=== PATIENT | male | born 1945 | race Caucasian/White ===

== ENCOUNTER 2017-11-15 04:52 | Inpatient (IN) | payer OTHER ==
[~2017-11-15] VITALS: Ht 188 cm; Wt 112.5 kg
[2017-11-15 04:59] VITALS: BP_SYST 144
--- NOTE | 2017-11-15 05:00 | NUR ---
Placed in room 06. Side rails up. Report given to BASSAM Whalen.
--- NOTE | 2017-11-15 05:05 | NUR ---
PT AAOX4 CAME IN WITH A COMPLAINT OF EPIGASTRIC PAIN THAT STARTED LAST NIGHT WITH A SCALE OF 7/10 AND VERBALIZED BY PT HE FEELS MORE COMFORTABLE SITTING DOWN THAN LYING DOWN ON BED. VSS WITH NO SIGNS OF RESPIRATORY DISTRESS. NO NAUSEA AND FEVER NOTED. HAS HISTORY OF HIGH CHOLESTEROL AND HYPERTENSION. SAFETY PRECAUTION OBSERVED AND WILL CONTINUE TO MONITOR PT.
[2017-11-15] MEDS ORDERED: GLUXR500 (05:29)
[2017-11-15] MEDS ORDERED: METO1TAB40 (05:29)
[2017-11-15] MEDS ORDERED: ALLO100T (05:29)
[2017-11-15] MEDS ORDERED: LIP10 (05:29)
[2017-11-15] MEDS ORDERED: VALS80TA2 (05:29)
[2017-11-15] MEDS ORDERED: AMLO5TAB4 (05:29)
--- NOTE | 2017-11-15 05:34 | NUR ---
ER at bedside examining patient.
[2017-11-15] MEDS ORDERED: KETOROLAC TROMETHAMINE 60 MG/2 ML VIAL IM ONE (05:45)
[2017-11-15 06:06] LABS: BASOPHILS % (AUTO) 0.7 % (0.0-2.0); EOSINOPHILS # (AUTO) 0.1 K/uL (0.0-0.4); EOSINOPHILS % (AUTO) 0.9 % (0.0-4.0); HEMATOCRIT 39.1 % (36-54); HEMOGLOBIN 13.4 g/dL (14.0-18.0); LYMPHOCYTES # (AUTO) 1.5 K/uL (1.0-5.5); LYMPHOCYTES % (AUTO) 22.2 % (20.5-51.5); MEAN CORPUSCULAR HEMOGLOBIN 33 pg (27-31); MEAN CORPUSCULAR HGB CONC 34 % (32-36); MEAN CORPUSCULAR VOLUME 97 fL (79.0-98.0); MONOCYTES # (AUTO) 0.5 K/uL (0.0-1.0); MONOCYTES % (AUTO) 6.9 % (1.7-9.3); NEUTROPHILS # (AUTO) 4.6 K/uL (1.8-7.7); NEUTROPHILS % (AUTO) 69.3 % (40.0-70.0); PLATELET COUNT (AUTO) 304 K/uL (130-430); RED BLOOD CELL COUNT(AUTO) 4.04 MIL/uL (4.2-6.2); RED CELL DISTRIBUTION WIDTH 13.5 % (9.0-15.0); WHITE BLOOD COUNT (AUTO) 6.7 K/uL (4.8-10.8)
[2017-11-15 06:22] LABS: CALCIUM 10.3 mg/dL (8.4-11.0); CHLORIDE 109 mmol/L (98-107); CREATININE 0.68 mg/dL (0.55-1.30); GLUCOSE 147 mg/dL (70-99); SODIUM SERUM 141 mmol/L (136-145); UREA NITROGEN, BLOOD 23 mg/dL (8-21)
[2017-11-15 06:23] LABS: ANION GAP < 3 (5-15); GFR AFRICAN AMERICAN 148 mL/min (>90)
[2017-11-15 06:26] LABS: ALANINE AMINOTRANSFERASE 43 U/L (12-78); AMYLASE 45 U/L (0-100); ASPARTATE AMINOTRANSFERASE 23 U/L (10-37); LACTATE DEHYDROGENASE 148 U/L (85-227); LIPASE 425 U/L (73-393); TOTAL BILIRUBIN 0.2 mg/dL (0.0-1.0)
[2017-11-15] MEDS ORDERED: D5NS 1,000 ML IV ONE (07:45)
[2017-11-15 08:06] LABS: BILIRUBIN,URINE NEGATIVE (NEGATIVE); BLOOD, URINE 1+ (NEGATIVE); CLARITY/URINE SL HAZY (CLEAR); COLOR,URINE YELLOW (YELLOW); GLUCOSE,URINE NEGATIVE (NEGATIVE); KETONES,URINE NEGATIVE (NEGATIVE); LEUKOCYTE ESTERASE ,URINE NEGATIVE (NEGATIVE); NITRITE, URINE NEGATIVE (NEGATIVE); PH,URINE 5.5 (5.0-8.0); PROTEIN URINE 2+ (NEGATIVE); UROBILINOGEN,URINE 0.2 (0.2-1.0)
--- NOTE | 2017-11-15 08:10 | NUR ---
# 22 gauge angiocath placed to L HAND. Use of asceptic technique. Opsite placed over site. Blood return noted. Flushed with 10 cc of normal saline. No evidence of infiltration noted. Patient tolerated well.
[2017-11-15 08:13] LABS: BACTERIA,URINE RARE /HPF (None Seen); RBC,URINE 0-3 /HPF (0-3); WBC,URINE 0-3 /HPF (0-3)
--- NOTE | 2017-11-15 08:21 | NUR ---
Patient will be admitted to care of Dr. Akins. Admitted to medsurg unit. Will go to room 135. Belongings list completed. Summary report printed. Report will be given at bedside.
--- NOTE | 2017-11-15 08:22 | NUR ---
Transfer to [facility]. IV present no sign or symptom of infiltration.
--- NOTE | 2017-11-15 08:30 | NUR ---
Admission Note Received patient from ER with diagnosis of acute cholecystitis. Initial Plan of Care discussed-patient verbalized understanding. Family at bedside. Oriented to room, call light, pain management and safety.
[2017-11-15 08:32] VITALS: BP_SYST 150
--- NOTE | 2017-11-15 08:39 | NUR ---
CONSULT SURGERY POSSIBLE SURGERY ACUTE CHOLECYSTITIS DR BANDA [phone] S/W MIYA CUMMINS @[id number]
--- NOTE | 2017-11-15 09:16 | NUR ---
Admission: Seen patient in the room. Denies pain at this time . Oriented to room routine. Started IV fluids of D5NS at 100 cc/hr on the left hand gauge 22. Call light within reach.
[2017-11-15 09:26] VITALS: BP_SYST 171
[2017-11-15 11:35] VITALS: BP_SYST 147
[2017-11-15] MEDS ORDERED: KETOROLAC TROMETHAMINE 30 MG VIAL IVP ONE (12:15)
--- NOTE | 2017-11-15 12:21 | NUR ---
Migraine: Medicated with Toradol IVP for Migraine.
--- NOTE | 2017-11-15 14:00 | NUR ---
MD rounds: Seen by Dr. Suazo for surgical consult.
[2017-11-15 15:52] VITALS: BP_SYST 147
--- NOTE | 2017-11-15 17:20 | NUR ---
Ultrasound result: Reported to Dr. Suazo, with new orders. Patient is aware.
[2017-11-15 17:40] VITALS: BP_SYST 147
== END 2017-11-15 18:23 | disposition home or self-care (01) | DRG 446 ==
LOC: SED 04:52 → SMU 07:34
PROVIDERS: ADMIT Specialist; ATTEND Specialist
DX: K81.0 Acute cholecystitis (principal); E11.9 Type 2 diabetes mellitus without complications; K57.90 Diverticulosis of intestine, part unspecified, without perforation or abscess without bleeding; E66.9 Obesity, unspecified; E78.5 Hyperlipidemia, unspecified; I10 Essential (primary) hypertension; N40.0 Benign prostatic hyperplasia without lower urinary tract symptoms; Z88.0 Allergy status to penicillin; Z79.899 Other long term (current) drug therapy; Z68.31 Body mass index [BMI] 31.0-31.9, adult
CPT/HCPCS: 36415; 76700-TC; 80053; 81000-TC; 82150-TC; 83615-TC; 83690-TC; 85025; 96372; 99285; J1885; J7042

== ENCOUNTER 2021-07-13 08:58 | Emergency (ER) | payer OTHER ==
[~2021-07-13] VITALS: Ht 188 cm; Wt 111.1 kg
[~2021-07-13 08:58] MED LIST: ALLO100T; AMLO5TAB4; GLUXR500; LIP10; METO1TAB40; VALS80TA2
--- NOTE | 2021-07-13 09:00 | NUR ---
Patient to ER bed 4 to gown for evaluation. Side rails up. Report given to Jaquan BANEGAS.
[2021-07-13 09:10] VITALS: BP_SYST 133
--- NOTE | 2021-07-13 09:30 | NUR ---
Dr Guerrero in to assess
--- NOTE | 2021-07-13 09:53 | NUR ---
CXR,EKG,LABS COMPLETED. TOLERATED WELL. DENIES CP/SOB
[2021-07-13 10:21] LABS: BASOPHILS % (AUTO) 0.5 % (0.0-2.0); EOSINOPHILS % (AUTO) 0.9 % (0.0-4.0); HEMATOCRIT 39.1 % (36-54); HEMOGLOBIN 13.3 g/dL (14.0-18.0); LYMPHOCYTES # (AUTO) 1.6 K/uL (1.0-5.5); LYMPHOCYTES % (AUTO) 31.4 % (20.5-51.5); MEAN CORPUSCULAR HEMOGLOBIN 33 pg (27-31); MEAN CORPUSCULAR HGB CONC 34 % (32-36); MEAN CORPUSCULAR VOLUME 97 fL (79.0-98.0); MONOCYTES # (AUTO) 0.4 K/uL (0.0-1.0); MONOCYTES % (AUTO) 8.5 % (1.7-9.3); NEUTROPHILS # (AUTO) 2.9 K/uL (1.8-7.7); NEUTROPHILS % (AUTO) 58.7 % (40.0-70.0); PLATELET COUNT (AUTO) 276 K/uL (130-430); RED BLOOD CELL COUNT(AUTO) 4.04 MIL/uL (4.2-6.2); RED CELL DISTRIBUTION WIDTH 14.7 % (9.0-15.0)
[2021-07-13 10:25] LABS: ANION GAP 8 (5-15); CALCIUM 9.2 mg/dL (8.4-11.0); CHLORIDE 105 mmol/L (98-107); CREATININE 1.05 mg/dL (0.55-1.30); GLUCOSE 119 mg/dL (70-99); POTASSIUM 3.4 mmol/L (3.5-5.1); SODIUM SERUM 140 mmol/L (136-145); UREA NITROGEN, BLOOD 22 mg/dL (8-21)
[2021-07-13 11:27] VITALS: BP_SYST 131
--- NOTE | 2021-07-13 11:30 | NUR ---
Patient given written and verbal discharge instructions and verbalizes understanding. ER MD discussed with patient the results and treatment provided. Patient in stable condition. ID arm band removed. Patient educated on pain management and to follow up with PMD. Pain Scale Opportunity for questions provided and answered. Medication side effect fact sheet provided.
== END 2021-07-13 11:30 | disposition home or self-care (01) ==
LOC: SED 08:58
DX: R42 Dizziness and giddiness (principal); R07.89 Other chest pain; I10 Essential (primary) hypertension; E11.9 Type 2 diabetes mellitus without complications; Z88.0 Allergy status to penicillin; Z79.84 Long term (current) use of oral hypoglycemic drugs; Z79.899 Other long term (current) drug therapy
CPT/HCPCS: 36415; 71045; 80048; 81002; 85025; 93005; 99285

== ENCOUNTER 2023-09-21 17:05 | Inpatient (IN) | payer OTHER ==
[~2023-09-21] VITALS: Ht 188 cm; Wt 110.7 kg
[2023-09-21] MEDS ORDERED: IPRATROPIUM/ALBUTEROL SULFATE 3 ML AMPUL.NEB (DUONEB) INH ONE (17:15)
[2023-09-21 17:18] VITALS: BP_SYST 140; PULSE 95; RESP 16; O2SAT 94
[2023-09-21 17:32] VITALS: O2SAT 95
[2023-09-21 18:13] LABS: BASOPHILS % (AUTO) 0.2 % (0.0-2.0); EOSINOPHILS # (AUTO) 0.1 K/uL (0.0-0.4); EOSINOPHILS % (AUTO) 0.8 % (0.0-4.0); HEMATOCRIT 29.5 % (36-54); LYMPHOCYTES # (AUTO) 0.5 K/uL (1.0-5.5); LYMPHOCYTES % (AUTO) 7.9 % (20.5-51.5); MEAN CORPUSCULAR HEMOGLOBIN 36 pg (27-31); MEAN CORPUSCULAR HGB CONC 34 % (32-36); MEAN CORPUSCULAR VOLUME 107 fL (79.0-98.0); MONOCYTES # (AUTO) 0.4 K/uL (0.0-1.0); MONOCYTES % (AUTO) 6.7 % (1.7-9.3); NEUTROPHILS # (AUTO) 5.6 K/uL (1.8-7.7); NEUTROPHILS % (AUTO) 84.4 % (40.0-70.0); PLATELET COUNT (AUTO) 457 K/uL (130-430); RED BLOOD CELL COUNT(AUTO) 2.76 MIL/uL (4.2-6.2); RED CELL DISTRIBUTION WIDTH 18.7 % (9.0-15.0); WHITE BLOOD COUNT (AUTO) 6.6 K/uL (4.8-10.8)
[2023-09-21 18:16] LABS: ALANINE AMINOTRANSFERASE 21 U/L (12-78); ALBUMIN 2.6 g/dL (3.4-4.8); ANION GAP 9 (5-15); ASPARTATE AMINOTRANSFERASE 17 U/L (10-37); CALCIUM 8.6 mg/dL (8.4-11.0); CARBON DIOXIDE 26 mmol/L (23-29); CHLORIDE 94 mmol/L (98-107); CREATININE 6.52 mg/dL (0.55-1.30); GLUCOSE 129 mg/dL (74-106); POTASSIUM 5.3 mmol/L (3.5-5.1); SODIUM SERUM 129 mmol/L (136-145); TOTAL BILIRUBIN 0.2 mg/dL (0.0-1.0); TOTAL PROTEIN, SERUM 6.6 g/dL (6.4-8.3); UREA NITROGEN, BLOOD 67 mg/dL (8-21)
[2023-09-21 18:59] LABS: ANISOCYTOSIS 1+
[2023-09-21] MEDS ORDERED: cefTRIAXone 1 GM in D5W 50 ML IV ONE (19:15)
[2023-09-21] MEDS ORDERED: fentaNYL CITRATE/PF 100 MCG/2 ML AMP IVP ONE (19:15)
[2023-09-21 19:22] LABS: BILIRUBIN,URINE NEGATIVE (NEGATIVE); BLOOD, URINE 3+ (NEGATIVE); CLARITY/URINE CLEAR (CLEAR); COLOR,URINE YELLOW (YELLOW); GLUCOSE,URINE NEGATIVE (NEGATIVE); KETONES,URINE NEGATIVE (NEGATIVE); LEUKOCYTE ESTERASE ,URINE NEGATIVE (NEGATIVE); NITRITE, URINE NEGATIVE (NEGATIVE); PROTEIN URINE NEGATIVE (NEGATIVE); UROBILINOGEN,URINE 0.2 (0.2-1.0)
[2023-09-21] MEDS ORDERED: NACL 0.9% 1,000 ML IV ONE (19:30)
[2023-09-21] MEDS ORDERED: cefTRIAXone 1 GM IVPB PREMIX 50 ML IV ONE (19:40)
[2023-09-21 19:47] LABS: INFLUENZA TYPE A Negative (NEGATIVE); INFLUENZA TYPE B NEGATIVE (NEGATIVE)
[2023-09-21 19:51] LABS: BACTERIA,URINE FEW /HPF (None Seen); MUCUS,URINE None Seen /LPF (None Seen); RBC,URINE 20-50 /HPF (0-3)
[2023-09-21] MEDS ORDERED: HYDROmorphone 1 MG/ML INJ. CARTRIDGE IVP ONE (20:30)
[2023-09-21 22:13] VITALS: BP_SYST 163; PULSE 89; RESP 18; TEMP 98.7
[2023-09-21] MEDS ORDERED: INSULIN REGULAR, HUMAN 100 UNITS/ML, 3 ML VIAL (humuLIN R) SUBCUT PRN (23:45)
[2023-09-21] MEDS ORDERED: ONDANSETRON HCL 4 MG/2 ML VIAL IVP PRN (23:45)
[2023-09-21] MEDS ORDERED: HYDROcodone/ACETAMIN 10-325 MG TAB PO PRN (23:45)
[2023-09-21] MEDS ORDERED: NALOXONE HCL 0.4 MG/ML AMP (NARCAN) IVP PRN ×2 (23:45)
[2023-09-21] MEDS ORDERED: LORazepam 2 MG/ML VIAL IVP PRN (23:45)
[2023-09-22] MEDS: HYDROcodone/ACETAMIN 5-325 MG TAB (NORCO/ VICODIN) PO PRN ×3 (00:21→22:46)
[2023-09-22] MEDS: ACETAMINOPHEN 325 MG TABLET PO PRN ×2 (00:22→05:56)
[2023-09-22] MEDS: MORPHINE 2 MG/ML INJ. SYRINGE IVP PRN ×4 (01:12→19:40)
[2023-09-22 05:18] VITALS: BP_SYST 135; PULSE 82; RESP 18; TEMP 97.5; O2SAT 98
[2023-09-22] MEDS: NORMAL SALINE 5 ML DISP.SYRIN IVF SCH ×3 (05:56→22:36)
[2023-09-22] MEDS ORDERED: cefTRIAXone 1 GM in D5W 50 ML IV SCH (06:00)
[2023-09-22 06:12] LABS: BASOPHILS % (AUTO) 0.9 % (0.0-2.0); EOSINOPHILS % (AUTO) 0.7 % (0.0-4.0); HEMATOCRIT 28.3 % (36-54); HEMOGLOBIN 9.4 g/dL (14.0-18.0); LYMPHOCYTES # (AUTO) 0.9 K/uL (1.0-5.5); LYMPHOCYTES % (AUTO) 21.4 % (20.5-51.5); MEAN CORPUSCULAR HEMOGLOBIN 33 pg (27-31); MEAN CORPUSCULAR HGB CONC 33 % (32-36); MEAN CORPUSCULAR VOLUME 101 fL (79.0-98.0); MONOCYTES # (AUTO) 0.2 K/uL (0.0-1.0); MONOCYTES % (AUTO) 6.1 % (1.7-9.3); NEUTROPHILS # (AUTO) 2.9 K/uL (1.8-7.7); NEUTROPHILS % (AUTO) 70.9 % (40.0-70.0); PLATELET COUNT (AUTO) 427 K/uL (130-430); RED BLOOD CELL COUNT(AUTO) 2.81 MIL/uL (4.2-6.2); RED CELL DISTRIBUTION WIDTH 18.4 % (9.0-15.0)
[2023-09-22 06:39] LABS: ALANINE AMINOTRANSFERASE 20 U/L (12-78); ALBUMIN 2.5 g/dL (3.4-4.8); ANION GAP 10 (5-15); ASPARTATE AMINOTRANSFERASE 10 U/L (10-37); CALCIUM 9.4 mg/dL (8.4-11.0); CARBON DIOXIDE 29 mmol/L (23-29); CHLORIDE 103 mmol/L (98-107); CREATININE 3.66 mg/dL (0.55-1.30); GLUCOSE 108 mg/dL (74-106); PHOSPHORUS 5.3 mg/dL (2.7-4.5); POTASSIUM 4.4 mmol/L (3.5-5.1); SODIUM SERUM 142 mmol/L (136-145); TOTAL BILIRUBIN 0.2 mg/dL (0.0-1.0); TOTAL PROTEIN, SERUM 6.2 g/dL (6.4-8.3); UREA NITROGEN, BLOOD 50 mg/dL (8-21)
[2023-09-22] MEDS ORDERED: METF-381 PO (08:31)
[2023-09-22] MEDS ORDERED: VALS1TAB80 PO (08:31)
[2023-09-22] MEDS ORDERED: ALLO300T2 PO (08:31)
[2023-09-22] MEDS ORDERED: ATOR40TA68 PO (08:31)
[2023-09-22] MEDS ORDERED: AMLO2.5T2 PO (08:31)
[2023-09-22] MEDS ORDERED: METO50TA7 PO (08:31)
[2023-09-22] MEDS: TAMSULOSIN HCL 0.4 MG CAP PO SCH (09:36)
[2023-09-22] MEDS: NACL 0.9% 1,000 ML IV SCH ×2 (09:40→19:43)
[2023-09-22 10:51] VITALS: BP_SYST 160; PULSE 115; RESP 18; TEMP 97.8; O2SAT 95
[2023-09-22 14:23] VITALS: O2SAT 95
[2023-09-22 15:38] VITALS: BP_SYST 160; PULSE 98; RESP 18; TEMP 98.2; O2SAT 95
[2023-09-22] MEDS ORDERED: *HEPARIN PER PHARMACY XX ONE (18:30)
[2023-09-22 20:00] VITALS: BP_SYST 136; PULSE 88; RESP 18; TEMP 98; O2SAT 95; O2SAT 96
[2023-09-22] MEDS: cefTRIAXone 1 GM in D5W 50 ML IV SCH (20:38)
[2023-09-22 21:15] LABS: INR 1.1 (0.80-1.20); PROTHROMBIN TIME 10.9 SECS (9.5-12.5)
[2023-09-22] MEDS ORDERED: HEPARIN SODIUM,PORCINE 3000 UNITS/0.6 ML BOLUS IVP PRN (21:30)
[2023-09-22] MEDS ORDERED: HEPARIN SODIUM,PORCINE 2000 UNITS/0.4 ML BOLUS IVP PRN (21:30)
[2023-09-22] MEDS ORDERED: HEPARIN SODIUM,PORCINE 5,000 UNITS/ML VIAL IVP ONE (21:30)
[2023-09-22] MEDS: HEPARIN 25,000 UNITS in 250 ML PREMIX IV PRN (22:42)
[2023-09-23 00:13] VITALS: BP_SYST 147; PULSE 97; RESP 18; TEMP 98.1; O2SAT 96
[2023-09-23] MEDS: MORPHINE 2 MG/ML INJ. SYRINGE IVP PRN ×3 (03:19→13:57)
[2023-09-23] MEDS: NACL 0.9% 1,000 ML IV SCH ×2 (05:12→15:30)
[2023-09-23] MEDS: NORMAL SALINE 5 ML DISP.SYRIN IVF SCH ×3 (05:12→22:00)
[2023-09-23] MEDS: HYDROcodone/ACETAMIN 5-325 MG TAB (NORCO/ VICODIN) PO PRN ×2 (05:16→18:37)
[2023-09-23 06:08] LABS: ERYTHROCYTE SEDIMENTATION RATE 45 MM/HR (0-15)
[2023-09-23 06:51] LABS: ANION GAP 11 (5-15); CALCIUM 9.5 mg/dL (8.4-11.0); CARBON DIOXIDE 29 mmol/L (23-29); CHLORIDE 105 mmol/L (98-107); CREATININE 1.44 mg/dL (0.55-1.30); GLUCOSE 106 mg/dL (74-106); PHOSPHORUS 4.2 mg/dL (2.7-4.5); POTASSIUM 3.5 mmol/L (3.5-5.1); SODIUM SERUM 145 mmol/L (136-145); UREA NITROGEN, BLOOD 24 mg/dL (8-21)
[2023-09-23 07:13] LABS: BASOPHILS % (AUTO) 0.5 % (0.0-2.0); EOSINOPHILS # (AUTO) 0.1 K/uL (0.0-0.4); EOSINOPHILS % (AUTO) 1.3 % (0.0-4.0); HEMATOCRIT 29.8 % (36-54); HEMOGLOBIN 9.7 g/dL (14.0-18.0); LYMPHOCYTES # (AUTO) 1.1 K/uL (1.0-5.5); LYMPHOCYTES % (AUTO) 26.7 % (20.5-51.5); MEAN CORPUSCULAR HEMOGLOBIN 33 pg (27-31); MEAN CORPUSCULAR HGB CONC 32 % (32-36); MEAN CORPUSCULAR VOLUME 101 fL (79.0-98.0); MONOCYTES # (AUTO) 0.3 K/uL (0.0-1.0); MONOCYTES % (AUTO) 7.9 % (1.7-9.3); NEUTROPHILS # (AUTO) 2.7 K/uL (1.8-7.7); NEUTROPHILS % (AUTO) 63.6 % (40.0-70.0); PLATELET COUNT (AUTO) 476 K/uL (130-430); RED BLOOD CELL COUNT(AUTO) 2.94 MIL/uL (4.2-6.2); RED CELL DISTRIBUTION WIDTH 18.9 % (9.0-15.0); WHITE BLOOD COUNT (AUTO) 4.2 K/uL (4.8-10.8)
[2023-09-23 08:19] VITALS: O2SAT 96
[2023-09-23] MEDS: TAMSULOSIN HCL 0.4 MG CAP PO SCH (09:21)
[2023-09-23 11:25] VITALS: BP_SYST 139; PULSE 106; RESP 20; TEMP 98; O2SAT 96
[2023-09-23] MEDS: HEPARIN 25,000 UNITS in 250 ML PREMIX IV PRN ×3 (12:45→23:15)
[2023-09-23 16:59] VITALS: BP_SYST 142; PULSE 104; RESP 19; TEMP 98.8; O2SAT 95
[2023-09-23 20:30] VITALS: BP_SYST 147; PULSE 116; RESP 20; TEMP 98.4; O2SAT 96; O2SAT 98
[2023-09-23] MEDS: cefTRIAXone 1 GM in D5W 50 ML IV SCH (21:23)
[2023-09-23] MEDS: METOPROLOL TARTRATE 25 MG TABLET PO SCH (21:24)
[2023-09-24 00:15] VITALS: BP_SYST 146; PULSE 94; RESP 20; TEMP 98.8
[2023-09-24] MEDS: NACL 0.9% 1,000 ML IV SCH ×3 (02:06→23:20)
[2023-09-24] MEDS: HYDROcodone/ACETAMIN 5-325 MG TAB (NORCO/ VICODIN) PO PRN ×4 (02:42→20:15)
[2023-09-24] MEDS: NORMAL SALINE 5 ML DISP.SYRIN IVF SCH ×3 (06:00→23:20)
[2023-09-24 06:25] LABS: BASOPHILS % (AUTO) 0.7 % (0.0-2.0); EOSINOPHILS # (AUTO) 0.1 K/uL (0.0-0.4); HEMATOCRIT 29.8 % (36-54); HEMOGLOBIN 9.7 g/dL (14.0-18.0); LYMPHOCYTES # (AUTO) 1.4 K/uL (1.0-5.5); LYMPHOCYTES % (AUTO) 21.8 % (20.5-51.5); MEAN CORPUSCULAR HEMOGLOBIN 32 pg (27-31); MEAN CORPUSCULAR HGB CONC 33 % (32-36); MEAN CORPUSCULAR VOLUME 99 fL (79.0-98.0); MONOCYTES # (AUTO) 0.4 K/uL (0.0-1.0); MONOCYTES % (AUTO) 6.2 % (1.7-9.3); NEUTROPHILS # (AUTO) 4.5 K/uL (1.8-7.7); NEUTROPHILS % (AUTO) 69.3 % (40.0-70.0); PLATELET COUNT (AUTO) 471 K/uL (130-430); RED BLOOD CELL COUNT(AUTO) 3.01 MIL/uL (4.2-6.2); RED CELL DISTRIBUTION WIDTH 18.5 % (9.0-15.0); WHITE BLOOD COUNT (AUTO) 6.4 K/uL (4.8-10.8)
[2023-09-24 06:52] LABS: ANION GAP 11 (5-15); CALCIUM 9.3 mg/dL (8.4-11.0); CARBON DIOXIDE 27 mmol/L (23-29); CHLORIDE 106 mmol/L (98-107); CREATININE 1.06 mg/dL (0.55-1.30); GLUCOSE 113 mg/dL (74-106); PHOSPHORUS 3.5 mg/dL (2.7-4.5); POTASSIUM 3.4 mmol/L (3.5-5.1); SODIUM SERUM 144 mmol/L (136-145); UREA NITROGEN, BLOOD 17 mg/dL (8-21)
[2023-09-24 08:00] VITALS: BP_SYST 161; PULSE 101; RESP 18; TEMP 98.3; O2SAT 96
[2023-09-24 08:32] LABS: ERYTHROCYTE SEDIMENTATION RATE 31 MM/HR (0-15)
[2023-09-24] MEDS: TAMSULOSIN HCL 0.4 MG CAP PO SCH (08:57)
[2023-09-24] MEDS: METOPROLOL TARTRATE 25 MG TABLET PO SCH (08:57)
[2023-09-24] MEDS: VANCOMYCIN HCL 1,250 MG in NS 250 ML IV SCH ×2 (10:43→23:21)
[2023-09-24 12:00] VITALS: BP_SYST 153; PULSE 90; RESP 16; TEMP 98.5; O2SAT 96
[2023-09-24 16:00] VITALS: BP_SYST 147; PULSE 95; RESP 18; TEMP 98.3; O2SAT 95
[2023-09-24 20:00] VITALS: BP_SYST 166; PULSE 111; RESP 20; TEMP 98.4; O2SAT 96
[2023-09-24] MEDS: APIXABAN 2.5 MG TABLET PO SCH (21:19)
[2023-09-24] MEDS: METOPROLOL TARTRATE 50 MG TABLET PO SCH (21:20)
[2023-09-24] MEDS: cefTRIAXone 1 GM in D5W 50 ML IV SCH (21:21)
[2023-09-25] VITALS (7 sets, daily range): BP systolic 132–161; PULSE 62–114; RESP 16–20; TEMP 97.3–98.6; O2SAT 95–99
[2023-09-25] MEDS: HYDROcodone/ACETAMIN 5-325 MG TAB (NORCO/ VICODIN) PO PRN ×5 (02:09→21:15)
[2023-09-25 05:33] LABS: BASOPHILS % (AUTO) 0.6 % (0.0-2.0); EOSINOPHILS # (AUTO) 0.2 K/uL (0.0-0.4); HEMATOCRIT 30.3 % (36-54); HEMOGLOBIN 9.9 g/dL (14.0-18.0); LYMPHOCYTES # (AUTO) 1.2 K/uL (1.0-5.5); LYMPHOCYTES % (AUTO) 22.4 % (20.5-51.5); MEAN CORPUSCULAR HEMOGLOBIN 34 pg (27-31); MEAN CORPUSCULAR HGB CONC 33 % (32-36); MEAN CORPUSCULAR VOLUME 102 fL (79.0-98.0); MONOCYTES # (AUTO) 0.3 K/uL (0.0-1.0); MONOCYTES % (AUTO) 5.6 % (1.7-9.3); NEUTROPHILS # (AUTO) 3.5 K/uL (1.8-7.7); NEUTROPHILS % (AUTO) 68.4 % (40.0-70.0); PLATELET COUNT (AUTO) 446 K/uL (130-430); RED BLOOD CELL COUNT(AUTO) 2.96 MIL/uL (4.2-6.2); RED CELL DISTRIBUTION WIDTH 18.4 % (9.0-15.0); WHITE BLOOD COUNT (AUTO) 5.2 K/uL (4.8-10.8)
[2023-09-25 05:50] LABS: ERYTHROCYTE SEDIMENTATION RATE 36 MM/HR (0-15)
[2023-09-25 06:43] LABS: ANION GAP 9 (5-15); CALCIUM 8.8 mg/dL (8.4-11.0); CARBON DIOXIDE 25 mmol/L (23-29); CHLORIDE 107 mmol/L (98-107); CREATININE 0.96 mg/dL (0.55-1.30); GLUCOSE 103 mg/dL (74-106); POTASSIUM 3.7 mmol/L (3.5-5.1); SODIUM SERUM 141 mmol/L (136-145); UREA NITROGEN, BLOOD 17 mg/dL (8-21)
[2023-09-25] MEDS: NORMAL SALINE 5 ML DISP.SYRIN IVF SCH ×3 (06:43→21:16)
[2023-09-25] MEDS: NACL 0.9% 1,000 ML IV SCH ×2 (07:30→17:59)
[2023-09-25] MEDS: PSYLLIUM HUSK 1 PKT PACKET PO SCH ×3 (09:39→21:16)
[2023-09-25] MEDS: METOPROLOL TARTRATE 50 MG TABLET PO SCH ×2 (09:39→21:03)
[2023-09-25] MEDS: APIXABAN 2.5 MG TABLET PO SCH ×2 (09:40→21:08)
[2023-09-25] MEDS: TAMSULOSIN HCL 0.4 MG CAP PO SCH (09:41)
[2023-09-25] MEDS: DOCUSATE SODIUM 100 MG CAPSULE PO SCH ×2 (09:41→21:05)
[2023-09-25] MEDS: VANCOMYCIN HCL 1,250 MG in NS 250 ML IV SCH (12:47)
[2023-09-25] MEDS: oxyBUTYnin chloride 5 MG TABLET PO SCH (21:03)
[2023-09-26] MEDS: CIPROFLOXACIN HCL 500 MG TABLET PO SCH ×3 (00:10→21:56)
[2023-09-26 00:33] VITALS: BP_SYST 143; PULSE 77; RESP 18; TEMP 97.7; O2SAT 98
[2023-09-26] MEDS: HYDROcodone/ACETAMIN 5-325 MG TAB (NORCO/ VICODIN) PO PRN ×6 (01:02→23:57)
[2023-09-26] MEDS: NACL 0.9% 1,000 ML IV SCH ×3 (01:04→19:37)
[2023-09-26 06:25] LABS: BASOPHILS % (AUTO) 0.5 % (0.0-2.0); EOSINOPHILS # (AUTO) 0.1 K/uL (0.0-0.4); HEMATOCRIT 30.7 % (36-54); HEMOGLOBIN 10.2 g/dL (14.0-18.0); LYMPHOCYTES # (AUTO) 1.1 K/uL (1.0-5.5); LYMPHOCYTES % (AUTO) 23.9 % (20.5-51.5); MEAN CORPUSCULAR HEMOGLOBIN 33 pg (27-31); MEAN CORPUSCULAR HGB CONC 33 % (32-36); MEAN CORPUSCULAR VOLUME 101 fL (79.0-98.0); MONOCYTES # (AUTO) 0.3 K/uL (0.0-1.0); MONOCYTES % (AUTO) 7.6 % (1.7-9.3); NEUTROPHILS # (AUTO) 2.9 K/uL (1.8-7.7); PLATELET COUNT (AUTO) 428 K/uL (130-430); RED BLOOD CELL COUNT(AUTO) 3.04 MIL/uL (4.2-6.2); RED CELL DISTRIBUTION WIDTH 18.9 % (9.0-15.0); WHITE BLOOD COUNT (AUTO) 4.4 K/uL (4.8-10.8)
[2023-09-26 07:02] LABS: ANION GAP 11 (5-15); CALCIUM 8.6 mg/dL (8.4-11.0); CARBON DIOXIDE 23 mmol/L (23-29); CHLORIDE 107 mmol/L (98-107); GLUCOSE 96 mg/dL (74-106); POTASSIUM 3.7 mmol/L (3.5-5.1); SODIUM SERUM 141 mmol/L (136-145); UREA NITROGEN, BLOOD 16 mg/dL (8-21)
[2023-09-26] MEDS: NORMAL SALINE 5 ML DISP.SYRIN IVF SCH ×3 (07:03→22:03)
[2023-09-26 07:45] LABS: ERYTHROCYTE SEDIMENTATION RATE 38 MM/HR (0-15)
[2023-09-26 08:00] VITALS: BP_SYST 159; PULSE 98; RESP 20; TEMP 98.6; O2SAT 99
[2023-09-26] MEDS: METOPROLOL TARTRATE 50 MG TABLET PO SCH ×2 (08:42→21:55)
[2023-09-26] MEDS: APIXABAN 2.5 MG TABLET PO SCH ×2 (08:43→21:58)
[2023-09-26] MEDS: oxyBUTYnin chloride 5 MG TABLET PO SCH ×2 (08:43→21:58)
[2023-09-26] MEDS: TAMSULOSIN HCL 0.4 MG CAP PO SCH (08:43)
[2023-09-26] MEDS: DOCUSATE SODIUM 100 MG CAPSULE PO SCH ×2 (08:43→21:56)
[2023-09-26] MEDS: PSYLLIUM HUSK 1 PKT PACKET PO SCH ×3 (08:43→21:52)
[2023-09-26] MEDS ORDERED: OXYBUTYNIN CHLORIDE 5 MG XL TAB PO SCH (09:00)
[2023-09-26 12:00] VITALS: BP_SYST 144; PULSE 81; RESP 20; TEMP 98.3; O2SAT 98
[2023-09-26] MEDS ORDERED: APIX2.5T PO (12:30)
[2023-09-26] MEDS ORDERED: CIPR-260 PO (12:30)
[2023-09-26] MEDS ORDERED: TAMS0.4C96 PO (12:30)
[2023-09-26] MEDS ORDERED: PSYL3.4P5 PO (12:30)
[2023-09-26] MEDS ORDERED: DOCU-144 PO (12:30)
[2023-09-26] MEDS ORDERED: DIT5 PO (12:30)
[2023-09-26] MEDS ORDERED: METO-442 PO (12:30)
[2023-09-26 16:00] VITALS: BP_SYST 137; PULSE 70; RESP 18; TEMP 98.7; O2SAT 97
[2023-09-26 20:00] VITALS: BP_SYST 140; PULSE 90; RESP 19; TEMP 98.3; O2SAT 98; O2SAT 99
[2023-09-27] VITALS: BP_SYST 132; PULSE 88; RESP 18; TEMP 98; O2SAT 98
[2023-09-27 04:00] VITALS: BP_SYST 137; PULSE 86; RESP 16; TEMP 98.3; O2SAT 98
[2023-09-27] MEDS: HYDROcodone/ACETAMIN 5-325 MG TAB (NORCO/ VICODIN) PO PRN ×2 (04:21→09:01)
[2023-09-27 05:50] LABS: BASOPHILS % (AUTO) 0.7 % (0.0-2.0); EOSINOPHILS # (AUTO) 0.1 K/uL (0.0-0.4); EOSINOPHILS % (AUTO) 2.3 % (0.0-4.0); HEMATOCRIT 30.4 % (36-54); HEMOGLOBIN 9.7 g/dL (14.0-18.0); LYMPHOCYTES % (AUTO) 27.1 % (20.5-51.5); MEAN CORPUSCULAR HEMOGLOBIN 32 pg (27-31); MEAN CORPUSCULAR HGB CONC 32 % (32-36); MEAN CORPUSCULAR VOLUME 100 fL (79.0-98.0); MONOCYTES # (AUTO) 0.3 K/uL (0.0-1.0); MONOCYTES % (AUTO) 8.1 % (1.7-9.3); NEUTROPHILS # (AUTO) 2.3 K/uL (1.8-7.7); NEUTROPHILS % (AUTO) 61.8 % (40.0-70.0); PLATELET COUNT (AUTO) 410 K/uL (130-430); RED BLOOD CELL COUNT(AUTO) 3.05 MIL/uL (4.2-6.2); RED CELL DISTRIBUTION WIDTH 18.7 % (9.0-15.0); WHITE BLOOD COUNT (AUTO) 3.8 K/uL (4.8-10.8)
[2023-09-27 06:09] LABS: ALANINE AMINOTRANSFERASE 31 U/L (12-78); ALBUMIN 2.7 g/dL (3.4-4.8); ANION GAP 9 (5-15); ASPARTATE AMINOTRANSFERASE 20 U/L (10-37); CALCIUM 8.5 mg/dL (8.4-11.0); CARBON DIOXIDE 25 mmol/L (23-29); CHLORIDE 105 mmol/L (98-107); CREATININE 0.84 mg/dL (0.55-1.30); ERYTHROCYTE SEDIMENTATION RATE 36 MM/HR (0-15); GLUCOSE 91 mg/dL (74-106); PHOSPHORUS 3.8 mg/dL (2.7-4.5); POTASSIUM 3.4 mmol/L (3.5-5.1); SODIUM SERUM 139 mmol/L (136-145); TOTAL BILIRUBIN 0.4 mg/dL (0.0-1.0); TOTAL PROTEIN, SERUM 6.3 g/dL (6.4-8.3); UREA NITROGEN, BLOOD 17 mg/dL (8-21)
[2023-09-27] MEDS: NORMAL SALINE 5 ML DISP.SYRIN IVF SCH (07:11)
[2023-09-27 08:00] VITALS: BP_SYST 155; PULSE 79; RESP 16; TEMP 98.9; O2SAT 96
[2023-09-27] MEDS: METOPROLOL TARTRATE 50 MG TABLET PO SCH (08:46)
[2023-09-27] MEDS: TAMSULOSIN HCL 0.4 MG CAP PO SCH (08:46)
[2023-09-27] MEDS: oxyBUTYnin chloride 5 MG TABLET PO SCH (08:46)
[2023-09-27] MEDS: DOCUSATE SODIUM 100 MG CAPSULE PO SCH (08:46)
[2023-09-27] MEDS: PSYLLIUM HUSK 1 PKT PACKET PO SCH ×2 (08:46→09:00)
[2023-09-27] MEDS: APIXABAN 2.5 MG TABLET PO SCH (08:47)
[2023-09-27 10:22] VITALS: BP_SYST 140; BP_SYST 155; PULSE 73; PULSE 79; RESP 18; TEMP 98.9; O2SAT 96
[2023-09-27] MEDS: CIPROFLOXACIN HCL 500 MG TABLET PO SCH (11:07)
== END 2023-09-27 12:30 | disposition home health service (06) | DRG 871 ==
LOC: SED 17:05 → STU 19:24 → SMU 09-24 23:07
PROVIDERS: ADMIT Preventive Medicine Preventive Medicine/Occupational Environmental Medicine; ATTEND Preventive Medicine Preventive Medicine/Occupational Environmental Medicine
DX: A41.9 Sepsis, unspecified organism (principal); E43 Unspecified severe protein-calorie malnutrition; J18.9 Pneumonia, unspecified organism; N17.9 Acute kidney failure, unspecified; N39.0 Urinary tract infection, site not specified; R33.9 Retention of urine, unspecified; R31.9 Hematuria, unspecified; D64.9 Anemia, unspecified; D75.839 Thrombocytosis, unspecified; E78.5 Hyperlipidemia, unspecified; Z20.822 Contact with and (suspected) exposure to COVID-19; E83.51 Hypocalcemia; C61 Malignant neoplasm of prostate; I12.9 Hypertensive chronic kidney disease with stage 1 through stage 4 chronic kidney disease, or unspecified chronic kidney disease; E11.22 Type 2 diabetes mellitus with diabetic chronic kidney disease; N18.30 Chronic kidney disease, stage 3 unspecified; E87.6 Hypokalemia; I48.91 Unspecified atrial fibrillation; M10.9 Gout, unspecified; N13.9 Obstructive and reflux uropathy, unspecified; Z79.01 Long term (current) use of anticoagulants; Z85.46 Personal history of malignant neoplasm of prostate; Z68.31 Body mass index [BMI] 31.0-31.9, adult
CPT/HCPCS: 36415; 71045; 76770; 80048; 80053; 81000; 81001; 81015; 82962; 83605; 83735; 83880; 84100; 84484; 85025; 85379; 85610-TC; 85651-TC; 85730-TC; 87040; 93005; 93970; 94664; 94760; 97116-GP; 97530-GP; 99291; G0378; J0696; J1170; J1644; J2270; J3010; J3370; J7050; J7060